=== PATIENT | male | born 1990 | race Caucasian/White ===

== ENCOUNTER 2017-02-15 09:07 | Observation (INO) | payer OTHER ==
[2017-02-15 09:11] VITALS: BMI 21.5
[2017-02-15 09:14] VITALS: BP 107/57; PULSE 83; RESP 15; TEMP 97.9; O2SAT 100
[2017-02-15] MEDS ORDERED: Sodium Chloride 0.9% 1,000 ML IV STA (09:22)
[2017-02-15 09:46] LABS: ADD MANUAL DIFF? NO
[2017-02-15 09:48] LABS: PH,URINE 6.5 (4.7-8.0); URINE BILIRUBIN NEGATIVE (NEGATIVE); URINE BLOOD NEGATIVE (NEGATIVE); URINE GLUCOSE (UA) NEGATIVE (NEGATIVE); URINE KETONE NEGATIVE (NEGATIVE); URINE LEUKOCYTE ESTERASE NEGATIVE Leu/uL (NEGATIVE); URINE PROTEIN 30 mg/dL (<30 mg/dL)
[2017-02-15 09:49] LABS: BASO # 0.03 K/mm3 (0.0-2.0); BASO % 0.4 % (0.0-3.0); EOS # 0.1 (0.0-0.7); EOS % 1.8 % (1.5-5.0); GRAN # 3.81 (1.4-6.5); GRAN % 54.3 % (50.0-68.0); HEMATOCRIT 46.9 % (42.0-52.0); LYMPH # 2.6 (1.2-3.4); LYMPH % 36.7 % (22.0-35.0); MEAN CELL VOLUME 90.7 fL (80.0-105.0); MEAN CORPUSCULAR HEMOGLOBIN 31.3 pg (25.0-35.0); MEAN CORPUSCULAR HGB CONC 34.5 g/dl (31.0-37.0); MEAN PLATELET VOLUME 10.4 fl (7.0-11.0); MONO # 0.5 (0.1-0.6); MONO % 6.8 % (1.0-6.0); PLATELET COUNT 247 10^3/uL (120.0-450.0); RED CELL DISTRIBUTION WIDTH 12.5 % (11.5-14.5)
[2017-02-15 09:49] LABS: URINE APPEARANCE CLEAR (CLEAR); URINE COLOR YELLOW (YELLOW)
--- NOTE | 2017-02-15 09:51 | ED PDOC ---
Arrival/HPI - General Chief Complaint: Back Pain Time Seen by Provider: 02/15/17 09:22 Historian: Patient - History of Present Illness Narrative History of Present Illness (Text): 02/15/17 09:48 26yr old male presents today with left sided low back pain that started yesterday suddenly. pt states pain radiates into the lower abdomen. c/o dysuria. no fever/chills. pt states today he developed pain in the left testicle. denies urinary frequency. denies penile discharge. no medications taken for pain at home. pt states pain is worse with movement and deep inspiration. no dizziness or weakness. no other complaints. Past Medical History - Provider Review Nursing Documentation Reviewed: Yes - Travel History Have you recently traveled outside [place] w/in the past 3 mons?: No - Infectious Disease Hx of Infectious Diseases: None - Tetanus Immunization Tetanus Immunization: Unknown - Reproductive Currently : No Currently Lactating: No - Cardiac Hx Cardiac Disorders: No - Pulmonary Hx Respiratory Disorders: Yes Hx Asthma: Yes - Neurological Hx Neurological Disorder: No - HEENT Hx HEENT Disorder: No - Renal Hx Renal Disorder: No - Endocrine/Metabolic Hx Endocrine Disorders: No - Hematological/Oncological Hx Blood Disorders: No - Integumentary Hx Dermatological Disorder: No - Musculoskeletal/Rheumatological Hx Musculoskeletal Disorders: No - Gastrointestinal Hx Gastrointestinal Disorders: No - Genitourinary/Gynecological Hx Genitourinary Disorders: No - Psychiatric Hx Psychophysiologic Disorder: No Hx Substance Use: No - Past Surgical History Past Surgical History: No Previous - Anesthesia Hx Anesthesia: No - Suicidal Assessment Feels Threatened In Home Enviroment: No Family/Social History - Physician Review Nursing Documentation Reviewed: Yes Family/Social History: Unknown Family HX Smoking Status: Never Smoked Hx Alcohol Use: No Hx Substance Use: No Hx Substance Use Treatment: No Allergies/Home Meds Allergies/Adverse Reactions: Allergies seafood Allergy (Severe, Uncoded 02/15/17 09:11) ANAPHYLAXIS Home Medications: Home Meds Medication Instructions Recorded Confirmed No Known Home Med 02/15/17 02/15/17 Review of Systems - Review of Systems Constitutional: absent: Fatigue, Fevers Respiratory: absent: SOB, Cough Cardiovascular: absent: Chest Pain, Palpitations Gastrointestinal: Abdominal Pain. absent: Constipation, Diarrhea, Nausea, Vomiting Genitourinary Male: Dysuria, Other (left sided testicular pain). absent: Frequency, Hematuria Musculoskeletal: Back Pain. absent: Arthralgias, Neck Pain Skin: absent: Rash, Pruritis Neurological: absent: Headache, Dizziness Psychiatric: absent: Anxiety, Depression Physical Exam Vital Signs Reviewed: Yes Vital Signs Temp Pulse Resp BP Pulse Ox 02/15/17 09:11 97.9 F 83 15 107/57 L 100 Temperature: Afebrile Blood Pressure: Normal Pulse: Regular Respiratory Rate: Normal Appearance: Positive for: Well-Appearing, Non-Toxic, Comfortable Pain Distress: None Mental Status: Positive for: Alert and Oriented X 3 - Systems Exam Head: Present: Atraumatic Mouth: Present: Moist Mucous Membranes Neck: Present: Normal Range of Motion Respiratory/Chest: Present: Clear to Auscultation, Good Air Exchange. No: Respiratory Distress, Accessory Muscle Use Cardiovascular: Present: Regular Rate and Rhythm, Normal S1, S2. No: Murmurs Abdomen: Present: Normal Bowel Sounds. No: Tenderness, Distention, Peritoneal Signs, Rebound, Guarding Genitourinary Male: Present: Normal External Genitalia, Circumcised Penis, Testicle Tenderness (+ left sided testicular tenderness. no edema, no erythema. ), Other (chaparoned by miguel angel er EMT). No: Penile Discharge Back: Present: Normal Inspection, CVA Tenderness, Other (left flank tenderness) Neurological: Present: GCS=15, Speech Normal Skin: Present: Warm, Dry, Normal Color. No: Rashes Psychiatric: Present: Alert, Oriented x 3 Medical Decision Making ED Course and Treatment: 02/15/17 09:52 Patient is nontoxic well appearing with stable vital signs presenting with left- sided flank pain radiating into the abdomen with left-sided testicular pain. pt comfortable in er. CBC wnl CMP wnl Amylase wnl Lipase wnl Urinalysis: wnl Ultrasound: Testicles:FINDINGS: RIGHT TESTICLE: Measures 3.7 x 3.6 x 2.0 cm. Normal echotexture and flow. RIGHT EPIDIDYMIS: Epididymal head measures 1.0 cm. Grossly unremarkable appearance with normal flow. LEFT TESTICLE: Measures 4.3 x 3.7 x 2.2 cm. Normal echotexture and flow. LEFT EPIDIDYMIS: Epididymal head measures 0.8 cm. Grossly unremarkable appearance with normal flow. HYDROCELE: No significant appearing hydroceles suggested VARICOCELE: None. OTHER FINDINGS: None. IMPRESSION: Unremarkable exam. No intra or extratesticular masses. Normal bilateral testicular flow CAT scan Findings: Lung bases are clear. No infiltrate effusion or basilar pneumothorax. Heart size is within range of normal. No pericardial effusion. Tiny hiatal hernia. The liver exhibits normal size and attenuation pattern without mass collection or calcification. Portal and splenic veins are opacified. Gallbladder is incompletely distended which may account for slight prominent gallbladder wall. No evidence of intraluminal gallbladder calculi. There are no pancreatic masses collections or calcifications. Spleen exhibits normal size and attenuation pattern without mass collection or calcification. There are no adrenal lesions. Kidneys exhibit symmetric nephrograms. No evidence of nephrolithiasis or hydronephrosis. Urinary bladder is incompletely distended which may account for slight prominent urinary bladder wall however muscular hypertrophy may contribute. Cystitis not excluded. Prostate gland measures approximately 3.67 cm. . Evaluation of the bowel is limited due to lack of oral contrast material. The the stomach is distended with food debris liquid and air. There are several on loops of proximal small bowel in the left upper abdomen that exhibit mild wall thickening and slight distension. The rule out on nonspecific enteritis. Normal- appearing appendix best seen on axial image number [id number]. Stool and air seen throughout the colon. No definitive evidence of abnormal mural wall thickening. There are no free or loculated fluid collections. No evidence of free intraperitoneal air. The osseous structures appear grossly intact. Impression: Findings suggestive of mild nonspecific enteritis as described. flexeril added. case discussed in depth with dr. hopkins; Patient reassessment: pt non toxic well appearing; no distress. stable vitals. will d/c home on keflex for uti symptoms. will send urine culture. and have patient f/u with dr. shelton (pmd) Discussed all results with patient in depth advised taking medications as prescribed; advised keflex for uti symptoms. will d/c home with flexeril for muscle spams. will d/c home with motrin. advised f/u with pmd within the next 2 days. advised immediate return if symptoms worsen,persist or if new symptoms develop. pt denies any n/v/d/c. denies abdominal pain currently. abdomen non tender. Patient verbalizes understanding of discharge instructions and need for immediate followup. all aspects of this case were discussed the attending of record. Impression: back pain, testicular pain, enteritis Motrin every 6 hours as needed for pain flexeril; every 8 hours as needed muscle spasms; may cause drowsiness. keflex; twice daily x 10 days Follow up with primary care physician within the next 2 days follow up with the urologist. Return immediately if symptoms worsen persist or if new symptoms develop: High fevers, increasing pain, vomiting, diarrhea or any other concerning symptoms develop - Lab Interpretations Lab Results: Lab Results 02/15/17 09:20: Urine Color Yellow, Urine Appearance Clear, Urine pH 6.5, Ur Specific Albers 1.025, Urine Protein 30 H, Urine Glucose (UA) Negative, Urine Ketones Negative, Urine Blood Negative, Urine Nitrate Negative, Urine Bilirubin Negative, Urine Urobilinogen 1.0 H, Ur Leukocyte Esterase Negative, Urine RBC Negative, Urine WBC Negative - Medication Orders Current Medication Orders: Discontinued Medications Cyclobenzaprine HCl (Flexeril) 10 mg PO STAT STA Stop: 02/15/17 13:05 Last Admin: 02/15/17 13:09 Dose: 10 MG Sodium Chloride (Sodium Chloride 0.9%) 1,000 mls @ 999 mls/hr IV .Q1H1M STA Stop: 02/15/17 10:22 Last Admin: 02/15/17 09:42 Dose: 999 MLS/HR eMAR Start Stop Document 02/15/17 09:42 SE (Rec: 02/15/17 09:42 [id number]) Intravenous Solution Start Date 02/15/17 Start Time 09:40 Iohexol (Omnipaque 350 100 Ml) Confirm Administered Dose 350 mg .ROUTE .STK-MED ONE Stop: 02/15/17 10:15 Ketorolac Tromethamine (Toradol) 30 mg IVP STAT STA Stop: 02/15/17 09:51 Last Admin: 02/15/17 10:12 Dose: 30 MG IVP Administration Document 02/15/17 10:12 SE (Rec: 02/15/17 10:12 [id number]) Charges for Administration # of IVP Administrations 1 ED OBSERVATION Discharge: Yes Date of observation admission: 02/15/17 Time of observation admission: 09:25 - Observation admission statement Patient is being placed in observation because:: flank pain/testicular pain/abdominal pain - Goals of Observation Goals of observation are:: improvement in symptoms - Progress Note Progress Note: 02/15/17 11:36 pt still with left sided flank pain 02/15/17 13:30 pt feeling better; no distress. resting in er. 02/15/17 14:36 pt feeling better after flexeril and toradol case discussed with dr. hopkins will d/c home to f/u with dr. shelton. will cover with keflex for dysuria. Disposition/Present on Arrival - Present on Arrival Any Indicators Present on Arrival: No History of DVT/PE: No History of Uncontrolled Diabetes: No Urinary Catheter: No History of Decub. Ulcer: No History Surgical Site Infection Following: None - Disposition Have Diagnosis and Disposition been Completed?: Yes Diagnosis: Back pain, Pain in testicle, Dysuria, Enteritis Disposition: HOME/ ROUTINE Disposition Time: 14:46 Patient Plan: Discharge Condition: GOOD
[2017-02-15 09:59] LABS: URINE RBC NEGATIVE /hpf (0-2); URINE WBC NEGATIVE /hpf (0-6)
[2017-02-15 09:59] LABS: ALB/GLOB RATIO 1.3 (1.1-1.8); ALKALINE PHOSPHATASE 78 U/L (38-133); ALT/SGPT 10 U/L (7-56); AMYLASE 81 U/L (35-125); AST/SGOT 21 U/L (15-59); BILIRUBIN,TOTAL 1.2 mg/dL (0.2-1.3); BLOOD UREA NITROGEN 17 mg/dL (7-21); CALCIUM 10.2 mg/dL (8.4-10.5); CARBON DIOXIDE 28 mmol/L (21-33); CHLORIDE 100 mmol/L (98-107); GFR AFRICAN-AMERICAN > 60; GLUCOSE,RANDOM 73 mg/dL (70-110); LIPASE 48 U/L (23-300); POTASSIUM 4.1 mmol/L (3.6-5.0); SODIUM 140 mmol/L (132-148); TOTAL PROTEIN 8.4 g/dL (5.8-8.3)
[2017-02-15] MEDS ORDERED: Iohexol 350 MG/100 ML VIAL ONE (10:14)
--- NOTE | 2017-02-15 10:14 | US ---
HISTORY: left sided testicular pain, started this morning ; pain left side wide urinating TECHNIQUE: Realtime sonography through the scrotum with color and doppler flow. COMPARISON: None Available. FINDINGS: RIGHT TESTICLE: Measures 3.7 x 3.6 x 2.0 cm. Normal echotexture and flow. RIGHT EPIDIDYMIS: Epididymal head measures 1.0 cm. Grossly unremarkable appearance with normal flow. LEFT TESTICLE: Measures 4.3 x 3.7 x 2.2 cm. Normal echotexture and flow. LEFT EPIDIDYMIS: Epididymal head measures 0.8 cm. Grossly unremarkable appearance with normal flow. HYDROCELE: No significant appearing hydroceles suggested VARICOCELE: None. OTHER FINDINGS: None. IMPRESSION: Unremarkable exam. No intra or extratesticular masses. Normal bilateral testicular flow
--- NOTE | 2017-02-15 12:00 | CT ---
PROCEDURE: DEXA scan HISTORY: TheOsteoporosis COMPARISON: None TECHNIQUE: DEXA scan was performed of the lumbar spine and left hip. This report includes standards established by the ISCD (International Society for Clinical Densitometry) and Osteoporosis criteria from the World Health Organization. FINDINGS: LUMBAR SPINE: The average bone mineral density is 0.972 g/sq cm. This corresponds to a T-score of -0.7 LEFT HIP: The average bone mineral density of the entire hip, excluding goff's triangle is 0.969 g/sq cm. This corresponds to a T-score of 0.2 IMPRESSION: LUMBAR SPINE: Normal. Fracture risk not increased LEFT HIP: Normal. Fracture risk not increased Note: Establish standard determined by World Health Organization for normal standard T score range is 0-1. For osteopenia, T score standard deviation is -1 to -2.5. For osteoporosis, T score standard deviation is -2.5 and below. Relative fracture risk is approximately as determined by World Health Organization 4x in osteopenia and 8x in osteoporosis, compared to young
--- NOTE | 2017-02-15 14:09 | RAD ---
HISTORY: back pain COMPARISON: Comparison chest 10/28/2014 FINDINGS: LUNGS: No active pulmonary disease. PLEURA: No significant pleural effusion identified, no pneumothorax apparent. CARDIOVASCULAR: Normal. OSSEOUS STRUCTURES: No significant abnormalities. VISUALIZED UPPER ABDOMEN: Normal. OTHER FINDINGS: None. IMPRESSION: No active disease.
== END 2017-02-15 14:38 | disposition home or self-care (01) ==
LOC: ED 09:07 → EROBSV 09:24
PROVIDERS: ADMIT Student in an Organized Health Care Education/Training Program; ATTEND Student in an Organized Health Care Education/Training Program
DX: M54.5 Low back pain (principal); K52.9 Noninfective gastroenteritis and colitis, unspecified; R30.0 Dysuria; N50.812 Left testicular pain
CPT/HCPCS: 71010; 74177; 80053; 81001; 82150; 83690; 85025; 87086; 93975; 96374; 99284; G0378; J1885; J7040; Q9967